=== PATIENT | female | born 1970 | race African-American/Black ===

== ENCOUNTER 2016-08-19 16:27 | Emergency (ER) | payer BC ==
[2016-08-19] MEDS ORDERED: Acetaminophen 500 MG TAB ONE (16:33)
[2016-08-19] MEDS ORDERED: Ketorolac Tromethamine 60 MG/2 ML VIAL ONE (17:43)
[2016-08-19] MEDS ORDERED: Oseltamivir 75 MG CAP ONE (17:49)
--- NOTE | 2016-08-19 18:09 | ERRECORD ---
[facility] EMERGENCY RECORD HPI COUGH (16:51 SHAN) CHIEF COMPLAINT: Patient presents for evaluation of cough. HISTORIAN: History provided by patient. LOCATION: No localizing symptoms, cough and aching, whole body, since about 2:00 am today. SEVERITY: Maximum severity of symptoms moderate, Currently symptoms are moderate. TIME COURSE: Sudden onset of symptoms. RELIEVED BY: Patient's condition relieved by nothing. ROS (16:52 SHAN) CONSTITUTIONAL: Negative constitutional review of systems. EYES: Negative eye review of systems. ENT: Historian reports rhinorrhea, reports sore throat. CARDIOVASCULAR: Negative cardiovascular review of systems. RESPIRATORY: Historian reports cough. GI: Negative gastrointestinal review of systems. SKIN: Negative skin review of systems. NEUROLOGIC: Negative neurologic review of systems. ENDOCRINE: Negative endocrine review of systems. NOTES: All systems reviewed, negative except as described above. PAST MEDICAL HISTORY (16:40 MSPE) MEDICAL HISTORY: Notes: htn, DM, Flu vaccine not up to date, Tetanus immunization up to date, Pneumococcal vaccine up to date. FEMALE SURGICAL HISTORY: Surgical history of section. PSYCHIATRIC HISTORY: No previous psychiatric history. SOCIAL HISTORY: Patient denies alcohol use, Patient denies drug use, Patient is a former tobacco user, smoked cigarettes, Patient quit smoking less than 10 years ago. KNOWN ALLERGIES nkda (Unconfirmed) No Known Drug Allergies CURRENT MEDICATIONS amlodipine-benazepril: CAPSULE : Strength - 10 mg-40 mg : ORAL Patient Dose: 1 tab(s) Oral once a day. (16:33 MSPE) aspirin: TABLET : Strength - 81 mg : ORAL Patient Dose: 1 tab(s) Oral once a day. (16:34 MSPE) cinnamon bark-chromium picolin: CAPSULE : Strength - 500 mg-100 mcg : ORAL Patient Dose: 2 tab(s) Oral once a day. (16:34 MSPE) glimepiride: TABLET : Strength - 4 mg : ORAL &a-1R&a+25V*p+0X*o3253J*c202B*c15G*c2P*p-0X&a-25V&a+1R Name: Graciela Lopez : 1970 F46 MedRec: [id number] AcctNum: [id number] Prepared: MonAug 19, 2016 18:07 by Interface Page 1 of 3 pMD [facility] EMERGENCY RECORD Patient Dose: 1 tab(s) Oral once a day (before a meal). (16:35 MSPE) One A Day Vitamin: TABLET : ORAL Patient Dose: 1 tab(s) Oral once a day. (16:36 MSPE) VITAL SIGNS VITAL SIGNS: BP: 185/96, Pulse: 97, Resp: 20, Temp: 101.5 (Oral), Pain: 8, O2 sat: 95 on Room Air, Time: 08/19/2016 16:30. (16:30 MSPE) Temp: 100.9 (Oral), Time: 08/19/2016 17:20. (17:20 MSPE) BP: 167/90, Pulse: 86, Resp: 20, Temp: 99.9, O2 sat: 96 on RA, Time: 08/19/2016 17:58. (17:58 MSPE) PHYSICAL EXAM (16:52 SHAN) CONSTITUTIONAL: Patient afebrile, Pulse normal, Blood pressure normal, Respiratory rate normal, Normal pulse oximetry, Patient appears non toxic, Patient appears pain free, Patient alert and oriented to person, place and time. HEAD: Head exam included findings of head atraumatic, normocephalic. EYES: Eye exam included findings of eyelids normal to inspection, Pupils equally round and reactive to light, Extraocular muscles intact. ENT: nasal congestion. NECK: Neck exam normal. RESPIRATORY CHEST: Mild ronchi. ABDOMEN FEMALE: Abdominal exam included findings of abdomen nontender, Bowel sounds normal. BACK: Back exam normal. UPPER EXTREMITY: Upper extremity exam included findings of inspection normal, Range of motion normal. NEURO: Neuro exam normal. SKIN: Skin exam normal. MEDICATION ADMINISTRATION SUMMARY Drug Name: Tamiflu, Dose Ordered: 1 cap(s), Route: Oral, Status: Given, Time: 17:51 08/19/2016, Drug Name: ketorolac intramuscular, Dose Ordered: 60 mg, Route: Intramuscular, Status: Given, Time: 17:47 08/19/2016, Drug Name: *Tylenol, Dose Ordered: 1 g, Route: Oral, Status: Given, Time: 16:36 08/19/2016, *Additional information available in notes, Detailed record available in Medication Service section. PROBLEM LIST No recorded problems DIAGNOSIS (17:51 SHAN) FINAL: PRIMARY: influenza. &a-1R&a+25V*p+0X*i3948Y*c202B*c15G*c2P*p-0X&a-25V&a+1R Name: Graciela Lopez : 1970 F46 MedRec: [id number] AcctNum: [id number] Prepared: MonAug 19, 2016 18:07 by Interface Page 2 of 3 pMD [facility] EMERGENCY RECORD PRESCRIPTION (17:51 LILO) Tamiflu: CAPSULE : 75 mg : ORAL : Quantity: 1 Unit: cap(s) Route: ORAL Schedule: 2 times a day (after meals) Dispense: 10 Unit: cap(s) May substitute. Refills: No Refills . NOTES: No Refills. DISPOSITION PATIENT: Disposition Type: Discharge, Disposition: *Discharge Home. (17:51 LILO) Patient left the department. (18:00 CASSANDRA) Mcdaniel: CASSANDRA=RACHEL Hennessy, Ila NAGY=MD Omi, Lux &a-1R&a+25V*p+0X*p7072H*c202B*c15G*c2P*p-0X&a-25V&a+1R Name: Graciela Lopez : 1970 F46 MedRec: [id number] AcctNum: [id number] Prepared: MonAug 19, 2016 18:07 by Interface Page 3 of 3 pMD MTDD
--- NOTE | 2016-08-19 18:15 | PICIS ---
[facility] EMERGENCY RECORD TRIAGE (MonAug 19, 2016 16:32 MSPE) TRIAGE NOTES: body aches/pain; CLEMENTE; "hard time breathing"; onset 0200 today. (MonAug 19, 2016 16:32 MSPE) PATIENT: NAME: Graciela Lopez, AGE: 46, GENDER: female, : Mon1970, TIME OF GREET: MonAug 19, 2016 16:27, PREFERRED LANGUAGE: Ugandan, ETHNICITY: Not or , ECODE BILLING MAP: [facility], SSN: [id number], Zip Code: [address], KG WEIGHT: 93.44, PHONE: , , , PERSON ID: [id number], PCP: [facility] [place]. (MonAug 19, 2016 16:32 MSPE) COMPLAINT: ACHES,PAIN,COUGH,HEADACHE. (MonAug 19, 2016 16:32 MSPE) ADMISSION: URGENCY: 4 Non Urgent, ADMISSION SOURCE: Home, TRANSPORT: CAR, BED: ER -03. (MonAug 19, 2016 16:32 MSPE) SIRS SCORING: Heart Rate 55-109 (0), Temp range 101.2-102.0 (1), respiratory rate 12-24 (0), Mental Status altered: no (0), Total SIRS Score 1. (16:40 MSPE) LMP: Last menstrual period: 08/18/2016. (16:40 MSPE) PROVIDERS: TRIAGE NURSE: Ila Hennessy RN. (MonAug 19, 2016 16:32 MSPE) VITAL SIGNS: BP 185/96, Pulse 97, Resp 20, Temp 101.5, (Oral), Pain 8, O2 Sat 95, on Room Air, Time 08/19/2016 16:30. (16:30 MSPE) PREVIOUS VISIT ALLERGIES: nkda. (MonAug 19, 2016 16:32 MSPE) nkda. (16:40 MSPE) KNOWN ALLERGIES nkda (Unconfirmed) No Known Drug Allergies CURRENT MEDICATIONS amlodipine-benazepril: CAPSULE : Strength - 10 mg-40 mg : ORAL Patient Dose: 1 tab(s) Oral once a day. (16:33 MSPE) aspirin: TABLET : Strength - 81 mg : ORAL Patient Dose: 1 tab(s) Oral once a day. (16:34 MSPE) cinnamon bark-chromium picolin: CAPSULE : Strength - 500 mg-100 mcg : ORAL Patient Dose: 2 tab(s) Oral once a day. (16:34 MSPE) glimepiride: TABLET : Strength - 4 mg : ORAL Patient Dose: 1 tab(s) Oral once a day (before a meal). (16:35 MSPE) One A Day Vitamin: TABLET : ORAL Patient Dose: 1 tab(s) Oral once a day. (16:36 MSPE) VITAL SIGNS VITAL SIGNS: BP: 185/96, Pulse: 97, Resp: 20, Temp: 101.5 (Oral), Pain: 8, O2 sat: 95 on Room Air, Time: 08/19/2016 16:30. (16:30 MSPE) &a-1R&a+25V*p+0X*t1229Z*c202B*c15G*c2P*p-0X&a-25V&a+1R Name: Graciela Lopez : 1970 F46 MedRec: [id number] AcctNum: [id number] Prepared: MonAug 19, 2016 18:12 by Interface Page 1 of 5 pMD [facility] EMERGENCY RECORD Temp: 100.9 (Oral), Time: 08/19/2016 17:20. (17:20 MSPE) BP: 167/90, Pulse: 86, Resp: 20, Temp: 99.9, O2 sat: 96 on RA, Time: 08/19/2016 17:58. (17:58 MSPE) NURSING ASSESSMENT: RESPIRATORY /CHEST (16:37 MSPE) CONSTITUTIONAL: Patient arrives ambulatory, Gait steady, History obtained from patient, Patient appears, generally ill, Patient cooperative, Patient alert, Oriented to person, place and time, Skin warm, Skin dry. PAIN: body aches; CLEMENTE. RESPIRATORY/CHEST: Respiratory assessment findings include respiratory effort easy, Respirations regular, Associated with cough, productive of, Associated with fever. ENT: Able to swallow, Speech normal, Associated with fever, Associated with headache. NURSING PROCEDURE: DISCHARGE NOTE (17:58 MSPE) DISCHARGE: Patient discharged to home, ambulating without assistance, Summary of Care printed/ provided, Discharge instructions given to patient, Simple or moderate discharge teaching performed, Prescriptions given and instructions on side effects given, Above person(s) verbalized understanding of discharge instructions and follow-up care, Patient treated and evaluated by physician. BELONGINGS: Belongings remain with patient. VITAL SIGNS: BP: 167, / 90, Pulse: 86, Resp: 20, Temp: 99.9, O2 sat: 96, on: RA. NURSING PROCEDURE: NURSE NOTES (17:20 MSPE) NURSES NOTES: Patient is awaiting results, Patient is awaiting disposition, Notes: Temp down after PO med. ORDER DETAILS Order Name: Influenza A&B Panel by NAAT, Status: Active, Time: 16:35 08/19/2016, User: LILO, - Ordered for: MD Braga Stanley, - Entered by: MD Braga Stanley - MonAug 19, 2016 16:35, - Quantity: 1. MEDICATION ADMINISTRATION SUMMARY Drug Name: Tamiflu, Dose Ordered: 1 cap(s), Route: Oral, Status: Given, Time: 17:51 08/19/2016, Drug Name: ketorolac intramuscular, Dose Ordered: 60 mg, Route: Intramuscular, Status: Given, Time: 17:47 08/19/2016, Drug Name: *Tylenol, Dose Ordered: 1 g, Route: Oral, Status: Given, Time: 16:36 08/19/2016, *Additional information available in notes, Detailed record available in Medication Service section. MEDICATION SERVICE &a-1R&a+25V*p+0X*z2215O*c202B*c15G*c2P*p-0X&a-25V&a+1R Name: Graciela Lopez : 1970 F46 MedRec: [id number] AcctNum: [id number] Prepared: MonAug 19, 2016 18:12 by Interface Page 2 of 5 pMD [facility] EMERGENCY RECORD ketorolac intramuscular: Order: ketorolac intramuscular (ketorolac tromethamine) - Dose: 60 mg : Intramuscular Schedule: Now Ordered by: Lux Braga MD Entered by: Lux Braga MD MonAug 19, 2016 17:43 , Acknowledged by: Ila Hennessy RN MonAug 19, 2016 17:43 Documented as given by: Ila Hennessy RN MonAug 19, 2016 17:47 Patient, Medication, Dose, Route and Time verified prior to administration. IM medication, Amount given: 60mg, Medication administered to right thigh, Patient appears Awake and alert- acceptable, Correct patient, time, route, dose and medication confirmed prior to administration, Patient advised of actions and side-effects prior to administration, Allergies confirmed and medications reviewed prior to administration, Patient in position of comfort, Side rails up, Cart in lowest position. Tamiflu: Order: Tamiflu (oseltamivir phosphate) - Dose: 1 cap(s) : Oral Schedule: Now Ordered by: Lux Braga MD Entered by: Lux Braga MD MonAug 19, 2016 17:46 , Acknowledged by: Ila Hennessy RN MonAug 19, 2016 17:48 Documented as given by: Ila Hennessy RN MonAug 19, 2016 17:51 Patient, Medication, Dose, Route and Time verified prior to administration. Amount given: 75mg, Site: Medication administered P.O., Patient appears Awake and alert- acceptable, Correct patient, time, route, dose and medication confirmed prior to administration, Patient advised of actions and side-effects prior to administration, Allergies confirmed and medications reviewed prior to administration, Patient in position of comfort, Side rails up, Cart in lowest position. Tylenol: Order: Tylenol (acetaminophen) - Dose: 1 g : Oral Schedule: Now Notes: Read back and verified, Verbal Order Ordered by: Lux Braga MD Entered by: Hui Venegas MonAug 19, 2016 16:36 Documented as given by: Hui Venegas MonAug 19, 2016 16:36 Patient, Medication, Dose, Route and Time verified prior to administration. Verbal order read back and verified, Amount given: 1g, Site: Medication administered P.O., Patient appears Awake and alert- acceptable, Correct patient, time, route, dose and medication confirmed prior to administration, Patient advised of actions and side-effects prior to administration, Allergies confirmed and medications reviewed prior to administration, Patient in position of comfort, Side rails up, Cart in lowest position, Family at bedside, Call light in reach. &a-1R&a+25V*p+0X*q0541R*c202B*c15G*c2P*p-0X&a-25V&a+1R Name: Graciela Lopez : 1970 F46 MedRec: [id number] AcctNum: [id number] Prepared: MonAug 19, 2016 18:12 by Interface Page 3 of 5 pMD [facility] EMERGENCY RECORD HPI COUGH (16:51 SHAN) CHIEF COMPLAINT: Patient presents for evaluation of cough. HISTORIAN: History provided by patient. LOCATION: No localizing symptoms, cough and aching, whole body, since about 2:00 am today. SEVERITY: Maximum severity of symptoms moderate, Currently symptoms are moderate. TIME COURSE: Sudden onset of symptoms. RELIEVED BY: Patient's condition relieved by nothing. ROS (16:52 SHAN) CONSTITUTIONAL: Negative constitutional review of systems. EYES: Negative eye review of systems. ENT: Historian reports rhinorrhea, reports sore throat. CARDIOVASCULAR: Negative cardiovascular review of systems. RESPIRATORY: Historian reports cough. GI: Negative gastrointestinal review of systems. SKIN: Negative skin review of systems. NEUROLOGIC: Negative neurologic review of systems. ENDOCRINE: Negative endocrine review of systems. NOTES: All systems reviewed, negative except as described above. PAST MEDICAL HISTORY (16:40 MSPE) MEDICAL HISTORY: Notes: htn, DM, Flu vaccine not up to date, Tetanus immunization up to date, Pneumococcal vaccine up to date. FEMALE SURGICAL HISTORY: Surgical history of section. PSYCHIATRIC HISTORY: No previous psychiatric history. SOCIAL HISTORY: Patient denies alcohol use, Patient denies drug use, Patient is a former tobacco user, smoked cigarettes, Patient quit smoking less than 10 years ago. PHYSICAL EXAM (16:52 SHAN) CONSTITUTIONAL: Patient afebrile, Pulse normal, Blood pressure normal, Respiratory rate normal, Normal pulse oximetry, Patient appears non toxic, Patient appears pain free, Patient alert and oriented to person, place and time. HEAD: Head exam included findings of head atraumatic, normocephalic. EYES: Eye exam included findings of eyelids normal to inspection, Pupils equally round and reactive to light, Extraocular muscles intact. ENT: nasal congestion. NECK: Neck exam normal. RESPIRATORY CHEST: Mild ronchi. ABDOMEN FEMALE: Abdominal exam included findings of abdomen nontender, Bowel sounds normal. BACK: Back exam normal. &a-1R&a+25V*p+0X*w7025U*c202B*c15G*c2P*p-0X&a-25V&a+1R Name: Graciela Lopez : 1970 F46 MedRec: [id number] AcctNum: [id number] Prepared: MonAug 19, 2016 18:12 by Interface Page 4 of 5 pMD [facility] EMERGENCY RECORD UPPER EXTREMITY: Upper extremity exam included findings of inspection normal, Range of motion normal. NEURO: Neuro exam normal. SKIN: Skin exam normal. EVENTS TRANSFER: Triage to Emergency Emergency Room -03. (MonAug 19, 2016 16:32 MSPE) Removed from Emergency Emergency Room -03. (18:00 MSPE) PROBLEM LIST No recorded problems DIAGNOSIS (17:51 SHAN) FINAL: PRIMARY: influenza. DISPOSITION PATIENT: Disposition Type: Discharge, Disposition: *Discharge Home. (17:51 SHAN) Patient left the department. (18:00 MSPE) INSTRUCTION (17:52 SHAN) DISCHARGE: INFLUENZA (ADULT). SPECIAL: 1. antiviral capsule twice a day until gone 2. take in extra fluids, rest, use otc Tylenol and ibuprofen if needed 3. return if condition worsens. PRESCRIPTION (17:51 SHAN) Tamiflu: CAPSULE : 75 mg : ORAL : Quantity: 1 Unit: cap(s) Route: ORAL Schedule: 2 times a day (after meals) Dispense: 10 Unit: cap(s) May substitute. Refills: No Refills . NOTES: No Refills. IMAGING (18:05 BWIS) *DISCHARGE INSTRUCTIONS RECEIPT: Image captured from scanner. *SUPPLY CHARGE SHEET: Image captured from scanner. Mcdaniel: ANTELMO=KAY Alexander Bobbie MSPE=RACHEL Hennessy, Ila NAGY=MD Omi, Lux &a-1R&a+25V*p+0X*r4078V*c202B*c15G*c2P*p-0X&a-25V&a+1R Name: Graciela Lopez : 1970 F46 MedRec: [id number] AcctNum: [id number] Prepared: MonAug 19, 2016 18:12 by Interface Page 5 of 5 pMD MTDD
== END 2016-08-19 17:58 | disposition home or self-care (01) ==
LOC: NAV ERS 16:27
DX: J11.1 Influenza due to unidentified influenza virus with other respiratory manifestations (principal); Z79.82 Long term (current) use of aspirin; Z79.84 Long term (current) use of oral hypoglycemic drugs; Z79.899 Other long term (current) drug therapy
CPT/HCPCS: 96372; J1885

== ENCOUNTER 2017-02-02 06:52 | Outpatient (CLI) | payer BC ==
[2017-02-02 08:01] LABS: #Basophils 0.1 thou/uL (0.0-0.2); #Eosinphils 0.2 thou/uL (0.0-0.7); #Lymphocytes 3.7 thou/uL (1.20-3.40); #Monocytes 0.5 thou/uL (0.11-0.59); #Neutrophils 2.8 thou/uL (1.40-6.50); %Basophils 0.9 % (0.0-1.0); %Eosinophils 2.5 % (0.0-10.0); %Lymphocytes 51.3 % (21.0-51.0); %Monocytes 7.1 % (0.0-10.0); %Neutrophils 38.1 % (42.0-75.0); Hemoglobin 12.7 g/dL (12.0-16.0); Mean Corpuscular HGB CONC 31.9 g/dL (32.0-36.0); Mean Corpuscular Hemoglobin 28.4 pg (27.0-31.0); Platelet Count 285 thou/uL (130-400); RBC Distribution Width 12.4 % (11.5-14.5); Red Blood Cell (RBC) Count 4.46 mill/uL (4.20-5.40); White Blood Cell (WBC) Count 7.3 thou/uL (4.8-10.8)
[2017-02-02 08:07] LABS: Hemoglobin A1c 6.6 % (4.0-6.0)
[2017-02-02 08:22] LABS: ALT (SGPT) 16 U/L (8-55); AST (SGOT) 20 U/L (5-34); Albumin 3.7 g/dL (3.5-5.0); Alkaline Phosphatase 107 U/L (40-150); Anion Gap 15 mmol/L (10-20); BUN (Urea Nitrogen) 18 mg/dL (7.0-18.7); Bilirubin, Total 0.7 mg/dL (0.2-1.2); Calc. Creatinine Clearance 0 mL/min (70-130); Calcium 9.3 mg/dL (7.8-10.44); Carbon Dioxide 27 mmol/L (22-29); Cardiac Risk 6.8 (Less than 4.5); Chloride 102 mmol/L (98-107); Cholesterol 253 mg/dl (< 200 Desired); Estimated GFR-MDRD 52; Globulin 3.8 g/dL (2.4-3.5); Glucose 101 mg/dL (70-105); HDL Cholesterol 37 mg/dL (>60 Neg Risk); LDL Cholesterol, Calculated 169 mg/dL; Potassium 3.3 mmol/L (3.5-5.1); Protein, Total 7.5 g/dL (6.0-8.3); Sodium 141 mmol/L (136-145); Triglycerides 233 mg/dL (Less than 150)
[2017-02-02 08:48] LABS: Free T4 (Free Thyroxine) 0.95 ng/dL (0.70-1.48); Thyroid Stimulating Hormone 2.1743 uIU/mL (0.35-4.94); Vitamin D, 25 Hydroxy 9.5 ng/ml (> 30.0)
[2017-02-02 18:16] LABS: Creatinine, Urine 227.85 mg/dL (47-110)
[2017-02-02 18:18] LABS: Microalbumin/Creat Ratio 838.3 mg/g (Less than 30)
== END 2017-02-02 06:53 | disposition home or self-care (01) ==
LOC: NAV LAB 06:52
PROVIDERS: ATTEND Family Medicine
DX: E11.9 Type 2 diabetes mellitus without complications (principal)
CPT/HCPCS: 36415; 80053; 80061; 82043; 82306; 83036; 84439; 84443; 85025

== ENCOUNTER 2017-11-13 16:58 | Emergency (ER) | payer BC ==
[2017-11-13 17:16] LABS: Bilirubin Negative (Negative); Blood, Urine Trace (Negative); Glucose, Urine (Dipstick) Negative (Negative); Leukocyte Negative (Negative); Nitrite Negative (Negative); Protein, Urine (Dipstick) > or equal to 300 mg/dL (Neg-Trace); Specific Gravity, Urine 1.025 (1.005-1.030); Urobilinogen 0.2 mg/dL (0.2-1.0)
[2017-11-13 17:19] LABS: Clarity SL HAZY (Clear)
[2017-11-13 17:34] LABS: Squamous Epithelial 0-3 HPF (0-3); WBC/HPF 0-3 HPF (0-3)
[2017-11-13 17:35] LABS: Pregnancy Test - Urine (BHCG) Negative (Negative); Pregu Control Background? CLEAR/WHITE (CLR/WHITE); Pregu Control Bar Appear? YES (CONTROL BAR); Specific Gravity 1.025 (1.002-1.036)
== END 2017-11-13 17:58 | disposition home or self-care (01) ==
LOC: NAV ERS 16:58
DX: R10.32 Left lower quadrant pain (principal); I10 Essential (primary) hypertension; E11.9 Type 2 diabetes mellitus without complications; Z79.82 Long term (current) use of aspirin; Z79.899 Other long term (current) drug therapy
CPT/HCPCS: 81003; 81015; 81025; 99284

== ENCOUNTER 2019-03-11 05:27 | Emergency (ER) | payer BC ==
[2019-03-11] MEDS ORDERED: Morphine 4 MG/ML VIAL ONE (05:57)
[2019-03-11] MEDS ORDERED: Ondansetron ODT 4 MG TAB ONE (05:57)
[2019-03-11 06:48] LABS: #Basophils 0.1 thou/uL (0.0-0.2); #Eosinphils 0.2 thou/uL (0.0-0.7); #Lymphocytes 4.3 thou/uL (1.20-3.40); #Monocytes 0.7 thou/uL (0.11-0.59); %Basophils 1.1 % (0.0-1.0); %Eosinophils 1.8 % (0.0-10.0); %Monocytes 6.6 % (0.0-10.0); %Neutrophils 48.5 % (42.0-75.0); Hemoglobin 12.9 g/dL (12.0-16.0); Mean Corpuscular HGB CONC 31.8 g/dL (32.0-36.0); Mean Corpuscular Hemoglobin 29.1 pg (27.0-31.0); Mean Corpuscular Volume 91.5 fL (78.0-98.0); Mean Platelet Volume 8.5 fL (7.4-10.4); Platelet Count 310 thou/uL (130-400); RBC Distribution Width 12.4 % (11.5-14.5); Red Blood Cell (RBC) Count 4.45 mill/uL (4.20-5.40); White Blood Cell (WBC) Count 10.3 thou/uL (4.8-10.8)
[2019-03-11 07:02] LABS: Anion Gap 17 mmol/L (10-20); BUN (Urea Nitrogen) 17 mg/dL (7.0-18.7); Calc. Creatinine Clearance 0 mL/min (70-130); Calcium 9.9 mg/dL (7.8-10.44); Carbon Dioxide 20 mmol/L (22-29); Chloride 106 mmol/L (98-107); Estimated GFR-MDRD 43; Glucose 215 mg/dL (70-105); Potassium 3.4 mmol/L (3.5-5.1); Sodium 140 mmol/L (136-145)
[2019-03-11] MEDS ORDERED: Aspirin Chewable 81 MG TAB ONE (07:23)
--- NOTE | 2019-03-11 08:28 | RAD ---
TWO VIEWS OF THE CHEST: COMPARISON: 05/09/2014. HISTORY: Severe right thigh pain and chest pain. FINDINGS: Two views of the chest show normal sized cardiomediastinal silhouette. There is no evidence of consol idation, mass, or pleural effusion. The bones are unremarkable. IMPRESSION: No evidence of acute cardiopulmonary disease. POS: [facility]
== END 2019-03-11 07:54 | disposition short-term general hospital (02) ==
LOC: NAV ERS 05:27
DX: R07.89 Other chest pain (principal); I10 Essential (primary) hypertension; E11.65 Type 2 diabetes mellitus with hyperglycemia; M79.651 Pain in right thigh; E78.5 Hyperlipidemia, unspecified; E78.00 Pure hypercholesterolemia, unspecified; F17.210 Nicotine dependence, cigarettes, uncomplicated; Z79.899 Other long term (current) drug therapy; Z79.4 Long term (current) use of insulin; Z79.82 Long term (current) use of aspirin
CPT/HCPCS: 71046; 80048; 84484; 85025; 85379; 93005; 96372; J2270; Q0162

== ENCOUNTER 2019-05-22 10:37 | Emergency (ER) | payer BC ==
[2019-05-22 11:29] LABS: BHCG - Serum Negative (NEGATIVE); Pregs Control Bar Appear? YES (CONTROL BAR)
[2019-05-22 11:34] LABS: ALT (SGPT) 15 U/L (8-55); AST (SGOT) 13 U/L (5-34); Albumin 3.7 g/dL (3.5-5.0); Alkaline Phosphatase 102 U/L (40-110); Anion Gap 14 mmol/L (10-20); BUN (Urea Nitrogen) 11 mg/dL (7.0-18.7); Bilirubin, Total 0.6 mg/dL (0.2-1.2); Calc. Creatinine Clearance 0 mL/min (70-130); Carbon Dioxide 21 mmol/L (22-29); Chloride 105 mmol/L (98-107); Estimated GFR-MDRD 47; Globulin 3.4 g/dL (2.4-3.5); Glucose 376 mg/dL (70-105); Potassium 3.2 mmol/L (3.5-5.1); Protein, Total 7.1 g/dL (6.0-8.3); Sodium 137 mmol/L (136-145)
[2019-05-22 12:10] LABS: #Basophils 0.1 thou/uL (0.0-0.2); #Eosinphils 0.1 thou/uL (0.0-0.7); #Lymphocytes 2.7 thou/uL (1.20-3.40); #Monocytes 0.4 thou/uL (0.11-0.59); #Neutrophils 3.2 thou/uL (1.40-6.50); %Basophils 0.9 % (0.0-1.0); %Eosinophils 2.2 % (0.0-10.0); %Lymphocytes 42.5 % (21.0-51.0); %Monocytes 5.5 % (0.0-10.0); Hemoglobin 12.4 g/dL (12.0-16.0); Mean Corpuscular HGB CONC 33.2 g/dL (32.0-36.0); Mean Corpuscular Hemoglobin 30.1 pg (27.0-31.0); Mean Corpuscular Volume 90.8 fL (78.0-98.0); Mean Platelet Volume 9.1 fL (7.4-10.4); Platelet Count 286 thou/uL (130-400); RBC Distribution Width 12.1 % (11.5-14.5); Red Blood Cell (RBC) Count 4.11 mill/uL (4.20-5.40); White Blood Cell (WBC) Count 6.4 thou/uL (4.8-10.8)
[2019-05-22 12:12] LABS: Bilirubin Negative (Negative); Blood, Urine Large (Negative); Clarity Clear (Clear); Glucose, Urine (Dipstick) 500 mg/dL (Negative); Leukocyte Negative (Negative); Nitrite Negative (Negative); Protein, Urine (Dipstick) > or equal to 300 mg/dL (Neg-Trace); Urobilinogen 0.2 mg/dL (Less than 2)
[2019-05-22 12:16] LABS: Bacteria/HPF None Seen HPF (None Seen); Squamous Epithelial 0-3 HPF (0-3); WBC/HPF 0-3 HPF (0-3)
[2019-05-22] MEDS ORDERED: Potassium Chloride 20 MEQ TAB ONE (12:25)
== END 2019-05-22 12:43 | disposition home or self-care (01) ==
LOC: NAV ERS 10:37
DX: E11.65 Type 2 diabetes mellitus with hyperglycemia (principal); N93.9 Abnormal uterine and vaginal bleeding, unspecified; E87.6 Hypokalemia; I10 Essential (primary) hypertension; E78.5 Hyperlipidemia, unspecified; E78.00 Pure hypercholesterolemia, unspecified; Z87.891 Personal history of nicotine dependence; Z79.4 Long term (current) use of insulin; Z79.82 Long term (current) use of aspirin; Z79.899 Other long term (current) drug therapy
CPT/HCPCS: 80053; 81003; 81015; 84703; 85025; 99284

== ENCOUNTER 2022-08-03 08:07 | Outpatient (CLI) | payer MEDICARE | END 2022-08-03 08:08 | disposition home or self-care (01) | LOC: NAV RAD 08:07 | PROVIDERS: ATTEND Nurse Practitioner Family | DX: M75.21 Bicipital tendinitis, right shoulder (principal); M25.561 Pain in right knee ==

== ENCOUNTER 2023-07-13 14:50 | Emergency (ER) | payer MEDICARE, OTHER ==
[~2023-07-13 14:50] MED LIST: Iopamidol 370 76% 100 ML VIAL ONE
[2023-07-13 15:06] LABS: #Basophils 0.1 thou/uL (0.0-0.2); #Eosinphils 0.1 thou/uL (0.0-0.7); #Lymphocytes 4.5 thou/uL (1.20-3.40); #Monocytes 0.4 thou/uL (0.11-0.59); #Neutrophils 5.1 thou/uL (1.40-6.50); %Basophils 0.9 % (0.0-1.0); %Eosinophils 1.3 % (0.0-10.0); %Lymphocytes 43.8 % (21.0-51.0); %Monocytes 4.1 % (0.0-10.0); %Neutrophils 49.8 % (42.0-75.0); Hematocrit 43.2 % (36.0-47.0); Hemoglobin 14.4 g/dL (12.0-16.0); Mean Corpuscular HGB CONC 33.2 g/dL (32.0-36.0); Mean Corpuscular Hemoglobin 29.4 pg (27.0-31.0); Mean Corpuscular Volume 88.5 fl (78.0-98.0); Mean Platelet Volume 9.4 fL (7.4-10.4); Platelet Count 393 10x3/uL (130-400); RBC Distribution Width 12.5 % (11.5-14.5); Red Blood Cell (RBC) Count 4.88 mill/uL (4.20-5.40); White Blood Cell (WBC) Count 10.3 10x3/uL (4.8-10.8)
[2023-07-13 15:21] LABS: INR-International Normal Ratio 0.8; PTT 29.3 sec (22.9-36.1); Prothrombin Time 11.4 sec (12.0-14.7)
[2023-07-13 15:31] LABS: Troponin I Less than 0.010 ng/mL (< 0.028)
[2023-07-13 15:51] LABS: ALT (SGPT) 12 U/L (8-55); AST (SGOT) 17 U/L (5-34); Albumin 3.9 g/dL (3.5-5.0); Alkaline Phosphatase 104 U/L (40-110); Anion Gap 15 mmol/L (10-20); BUN (Urea Nitrogen) 15 mg/dL (9.8-20.1); Bilirubin, Total 0.3 mg/dL (0.2-1.2); Calc. Creatinine Clearance 0 mL/min (70-130); Calcium 9.4 mg/dL (7.8-10.44); Carbon Dioxide 19 mmol/L (22-29); Chloride 105 mmol/L (98-107); Estimated GFR 45; Globulin 3.9 g/dL (2.4-3.5); Glucose 179 mg/dL (70-105); Lipase 194 U/L (8-78); Magnesium 1.8 mg/dL (1.6-2.6); Potassium 3.4 mmol/L (3.5-5.1); Protein, Total 7.8 g/dL (6.0-8.3); Sodium 136 mmol/L (136-145)
[2023-07-13 16:42] LABS: Bilirubin Negative (Negative); Blood, Urine Negative (Negative); Glucose, Urine (Dipstick) 250 mg/dL (Negative); Ketone, Urine Negative (Negative); Leukocyte Negative (Negative); Nitrite Negative (Negative); Protein, Urine (Dipstick) > or equal to 300 mg/dL (Neg-Trace)
[2023-07-13 16:47] LABS: Clarity Hazy (Clear)
[2023-07-13 16:52] LABS: Bacteria/HPF 1+ HPF (None Seen); CAUTI Indications for Culture Dysuria,urgency,freq; Squamous Epithelial 0-3 HPF (0-3); Urine Culture Reflex No No; WBC/HPF None Seen HPF (0-3)
[2023-07-13] MEDS ORDERED: Ipratropium/Albuterol 3 ML NEB ONE (17:01)
[2023-07-13] MEDS ORDERED: Aspirin Chewable 81 MG TAB ONE (17:36)
== END 2023-07-13 19:28 | disposition short-term general hospital (02) ==
LOC: NAV ERS 14:50
DX: R06.02 Shortness of breath (principal); R07.89 Other chest pain; E11.9 Type 2 diabetes mellitus without complications; I10 Essential (primary) hypertension; Z87.891 Personal history of nicotine dependence
CPT/HCPCS: 71045; 71275; 80053; 81001; 83690; 83735; 83880; 84443; 84484; 85025; 85610; 85730; 93005; J7620; Q9967